=== PATIENT | female | born 1945 | race Caucasian/White ===

== ENCOUNTER 2019-08-25 09:10 | Outpatient (CLI) | payer MEDICARE ==
[~2019-08-25 09:10] MED LIST: DOXY100C2; SUCR1ORA5
[2019-08-25] MEDS ORDERED: OMNIPAQUE 350 MG/ML, 75ML BOTTLE ONE (15:00)
== END 2019-08-25 23:59 | disposition home or self-care (01) ==
LOC: CFH 09:10 → RAD 23:59
PROVIDERS: ATTEND Internal Medicine Gastroenterology
DX: K44.9 Diaphragmatic hernia without obstruction or gangrene (principal); K76.89 Other specified diseases of liver
CPT/HCPCS: 71260; 74220; 74230; 92611; Q9967

== ENCOUNTER 2019-11-28 10:28 | Outpatient (CLI) | payer MEDICARE ==
[2019-11-28 11:39] LABS: BASOPHILS # (AUTO) 0.04 x10^3/uL (0-0.1); BASOPHILS % (AUTO) 1 % (0-1); EOSINOPHILS # (AUTO) 0.08 x10^3/uL (0-0.4); EOSINOPHILS % (AUTO) 2 % (1-7); LYMPHOCYTES # (AUTO) 1.44 x10^3/uL (1-3.4); LYMPHOCYTES % (AUTO) 31 % (22-44); MD NO; MEAN CORPUSCULAR HEMOGLOBIN 30.6 pg (27.0-34.8); MEAN CORPUSCULAR HGB CONC 33.7 g/dL (32.4-35.8); MEAN CORPUSCULAR VOLUME 90.6 fL (80-100); MEAN PLATELET VOLUME 9.1 fL (7.4-10.4); MONOCYTES # (AUTO) 0.42 x10^3/uL (0.2-0.8); MONOCYTES % (AUTO) 9 % (2-9); NEUTROPHILS # (AUTO) 2.76 x10^3/uL (1.8-6.8); NEUTROPHILS % (AUTO) 58 % (42-75); PLATELET COUNT 254 x10^3/uL (130-400); RED BLOOD COUNT 4.77 x10^6/uL (3.82-5.3); RED CELL DISTRIBUTION WIDTH 12.8 % (9.6-15.2)
[2019-11-28 11:50] LABS: INTERNATIONAL NORMALIZED RATIO 0.93 (0.93-1.1); PROTHROMBIN TIME 9.9 Seconds (9.6-11.5)
[2019-11-28 11:54] LABS: ANION GAP 8 mmol/L (5-15); CALCIUM 9.2 mg/dL (8.5-10.1); CHLORIDE 106 mmol/L (98-107)
[2019-11-28 11:58] LABS: ALANINE AMINOTRANSFERASE 18 U/L (12-78); ALKALINE PHOSPHATASE 142 U/L (45-117); BILIRUBIN,TOTAL 0.4 mg/dL (0.2-1.0); CREATININE 0.96 mg/dL (0.55-1.02); TOTAL PROTEIN 8.4 g/dL (6.4-8.2)
[2019-12-01] MEDS ORDERED: MULT1TAB60 PO (13:41)
[2019-12-01] MEDS ORDERED: L-Lysine PO (13:41)
[2019-12-01] MEDS ORDERED: CHOL2000 PO (13:41)
[2019-12-01] MEDS ORDERED: OMEP40CA42 PO (13:41)
[2019-12-01] MEDS ORDERED: MAGN400C PO (13:41)
[2019-12-01] MEDS ORDERED: MULT-806 PO (13:41)
== END 2019-11-28 23:59 | disposition home or self-care (01) ==
LOC: STAR 10:28
PROVIDERS: ATTEND Surgery
DX: Z01.818 Encounter for other preprocedural examination (principal); K44.9 Diaphragmatic hernia without obstruction or gangrene
CPT/HCPCS: 36415; 80053; 85025; 85610; 93005

== ENCOUNTER 2019-12-05 05:56 | Day surgery (SDC) | payer MEDICARE ==
[~2019-12-05] VITALS: Ht 167.6 cm; Wt 74.0 kg
[~2019-12-05 05:56] MED LIST changes: +CHOL2000 PO; +L-Lysine PO; +MAGN400C PO; +MULT-806 PO; +MULT1TAB60 PO; +OMEP40CA42 PO
[2019-12-05 06:42] VITALS: BP 127/66
[2019-12-05] MEDS ORDERED: LACTATED RINGERS 1,000 ML IV SCH (07:09)
[2019-12-05] MEDS ORDERED: BUPIVACAINE/PF 0.5% ONE (07:28)
[2019-12-05] MEDS ORDERED: EPINEPHRINE 1 MG/ML, 1ML ONE (07:28)
[2019-12-05] MEDS ORDERED: FENTANYL PF 250 MCG/5ML ONE (07:46)
[2019-12-05] MEDS ORDERED: MIDAZOLAM 1 MG/ML, 2ML ONE (07:46)
[2019-12-05] MEDS ORDERED: APREPITANT 40 MG CAPSULE ONE (07:50)
[2019-12-05] MEDS ORDERED: PROPOFOL 50 ML ONE ×3 (07:59→09:49)
[2019-12-05] MEDS ORDERED: DEXMEDETOMIDINE 200 MCG/2 ML ONE (08:18)
[2019-12-05] MEDS ORDERED: hydrALAzine 20 MG/ML, 1ML IV PRN (09:30)
[2019-12-05] MEDS ORDERED: OXYcodone 5 MG/5 ML ORAL.SOL UDC PO PRN (09:30)
[2019-12-05] MEDS ORDERED: HALOPERIDOL 5 MG/ML IV PRN (09:30)
[2019-12-05] MEDS ORDERED: ACETAMINOPHEN 325 MG TABLET PO PRN (09:30)
[2019-12-05] MEDS ORDERED: HYDROmorphone 2 MG/ML, 1ML IVPush PRN (09:30)
[2019-12-05] MEDS ORDERED: MEPERIDINE/PF 25MG/ML,1ML IVPush PRN (09:30)
[2019-12-05] MEDS ORDERED: FENTANYL PF 100 MCG/2ML IV PRN (09:30)
[2019-12-05] MEDS ORDERED: ONDANSETRON 2MG/ML, 2ML ONE (09:57)
[2019-12-05] MEDS ORDERED: LIDOCAINE-MPF 2% ,5ML ONE (09:57)
[2019-12-05] MEDS ORDERED: PROPOFOL 10 MG/ML, 20ML ONE (09:57)
[2019-12-05] MEDS ORDERED: CEFOTETAN PMX 2GM/50ML 50 ML ONE (09:57)
[2019-12-05] MEDS ORDERED: ROCURONIUM 10MG/ML,5ML ONE (09:57)
[2019-12-05] MEDS ORDERED: DEXAMETHASONE 4 MG/ML, 1ML ONE (09:57)
[2019-12-05] MEDS ORDERED: SUGAMMADEX 200 MG/2 ML IVPush ONE (10:37)
== END 2019-12-05 15:05 | disposition home or self-care (01) ==
LOC: OUT 05:56
PROVIDERS: ATTEND Surgery
DX: K44.9 Diaphragmatic hernia without obstruction or gangrene (principal); K21.9 Gastro-esophageal reflux disease without esophagitis; K66.0 Peritoneal adhesions (postprocedural) (postinfection); Z88.5 Allergy status to narcotic agent
CPT/HCPCS: 43282; C1781; J0171; J1100; J2250; J2405; J2704; J3010; J3490

== ENCOUNTER 2020-04-09 10:00 | Outpatient (CLI) | payer MEDICARE ==
[~2020-04-09 10:00] MED LIST changes: +MULT-449 PO; -MULT1TAB60 PO
== END 2020-04-09 23:59 | disposition home or self-care (01) ==
LOC: CFH 10:00
PROVIDERS: ATTEND Family Medicine
DX: M85.88 Other specified disorders of bone density and structure, other site (principal); N95.9 Unspecified menopausal and perimenopausal disorder
CPT/HCPCS: 77080